=== PATIENT | female | born 1995 | race Caucasian/White ===

== ENCOUNTER 2016-08-03 19:42 | Emergency (ER) | payer OTHER ==
[~2016-08-03] VITALS: Ht 157.5 cm; Wt 105.5 kg
[2016-08-03 19:46] VITALS: TEMP 98.1
[2016-08-03] MEDS ORDERED: NORCO 325 MG-51 TAB PO (20:47)
[2016-08-03 21:15] VITALS: BP 150/107; PULSE 85
== END 2016-08-03 21:18 | disposition home or self-care (01) ==
LOC: COL.ER 19:42
DX: T22.211A Burn of second degree of right forearm, initial encounter (principal); T22.231A Burn of second degree of right upper arm, initial encounter; T31.0 Burns involving less than 10% of body surface; X10.2XXA Contact with fats and cooking oils, initial encounter; Y93.G3 Activity, cooking and baking; Y92.511 Restaurant or cafe as the place of occurrence of the external cause; Z23 Encounter for immunization

== ENCOUNTER 2018-06-22 00:11 | Emergency (ER) | payer SELFPAY ==
[~2018-06-22] VITALS: Ht 157.5 cm; Wt 113.6 kg
[~2018-06-22 00:11] MED LIST: NORCO 325 MG-51 TAB PO
[2018-06-22 00:12] VITALS: TEMP 98.5
[2018-06-22 01:31] LABS: BASO % 0.6 % (0.0-2.0); EOS # 0.1 (0.0-0.7); EOS % 1.9 % (0-4.0); GRAN # 3.8 (1.4-6.5); GRAN % 59.8 % (42.2-75.2); HEMATOCRIT 39.1 % (37.0-47.0); HEMOGLOBIN 12.6 g/dl (12.5-16.0); LYMPH # 1.9 (1.2-3.4); LYMPH % 29.3 % (20.0-51.0); MEAN CELL VOLUME 84 fl (80.0-100.0); MEAN CORPUSCULAR HEMOGLOBIN 27 pg (27.0-31.0); MEAN CORPUSCULAR HGB CONC 32 g/dl (33.0-37.0); MEAN PLATELET VOLUME 10.1 fl (7.4-10.4); MONO # 0.5 (0.1-0.6); MONO % 7.8 % (1.7-9.3); PLATELET COUNT 325 K/mm3 (130-400); RED BLOOD COUNT 4.68 M/mm3 (4.10-5.30); REDCELL DISTRIBUTION WIDTH-CV 13.2 % (11.5-14.5)
[2018-06-22 01:38] LABS: ALBUMIN 4.5 gm/dL (3.5-5.0); BILIRUBIN,TOTAL 0.5 mg/dL (0.0-1.0); CALCIUM 8.9 mg/dL (8.4-10.2); CREATININE, serum 0.63 mg/dL (0.52-1.25); POTASSIUM 3.5 mmol/L (3.4-5.0); TOTAL PROTEIN 8.3 gm/dL (6.4-8.2)
[2018-06-22 02:29] LABS: PH 7 (5-8); URINE APPEARANCE Cloudy; URINE BACTERIA None Seen /hpf; URINE BILIRUBIN Negative (NEGATIVE); URINE BLOOD 3+ (NEGATIVE); URINE CALCIUM OXALATE CRYSTAL Present /hpf; URINE COLOR Yellow; URINE GLUCOSE Negative (NEGATIVE); URINE KETONE Negative (NEGATIVE); URINE LEUKOCYTE ESTERASE Negative (NEGATIVE); URINE NITRATE Negative (NEGATIVE); URINE PROTEIN(semi-quant) 2+ (NEGATIVE); URINE RBC >50 /hpf; URINE WBC None Seen /hpf
[2018-06-22 02:36] LABS: COLLECTION METHOD CLEAN CATCH
[2018-06-22 03:00] VITALS: BP 137/95; PULSE 85
== END 2018-06-22 02:55 | disposition home or self-care (01) ==
LOC: COL.ER 00:11
PROVIDERS: Emergency Medicine
DX: R51 Headache (principal); I10 Essential (primary) hypertension; E66.9 Obesity, unspecified; Z68.42 Body mass index [BMI] 45.0-49.9, adult
CPT/HCPCS: J0780; J1200; J1885; J7030

== ENCOUNTER 2019-05-20 09:56 | Emergency (ER) | payer SELFPAY ==
[~2019-05-20] VITALS: Ht 157.5 cm; Wt 104.5 kg
[2019-05-20 10:04] VITALS: TEMP 98.2
[2019-05-20 12:04] LABS: BASO % 0.4 % (0.0-2.0); EOS # 0.2 (0.0-0.7); EOS % 2.4 % (0-4.0); GRAN # 4.4 (1.4-6.5); GRAN % 58.6 % (42.2-75.2); HEMATOCRIT 41.7 % (37.0-47.0); HEMOGLOBIN 13.1 g/dl (12.5-16.0); LYMPH # 2.4 (1.2-3.4); LYMPH % 32.5 % (20.0-51.0); MEAN CELL VOLUME 84 fl (80.0-100.0); MEAN CORPUSCULAR HEMOGLOBIN 27 pg (27.0-31.0); MEAN CORPUSCULAR HGB CONC 31 g/dl (33.0-37.0); MEAN PLATELET VOLUME 9.9 fl (7.4-10.4); MONO # 0.4 (0.1-0.6); MONO % 5.8 % (1.7-9.3); PLATELET COUNT 389 K/mm3 (130-400); RED BLOOD COUNT 4.94 M/mm3 (4.10-5.30); REDCELL DISTRIBUTION WIDTH-CV 13.1 % (11.5-14.5)
[2019-05-20] MEDS ORDERED: IBU800 M1 PO (13:09)
[2019-05-20 13:24] VITALS: BP 131/91; PULSE 73
[2019-05-20] MEDS ORDERED: ZITHROMAX 250M250 MG PO (15:29)
== END 2019-05-20 13:25 | disposition home or self-care (01) ==
LOC: COL.ER 09:56
PROVIDERS: Physician Assistant
DX: N92.0 Excessive and frequent menstruation with regular cycle (principal); G40.909 Epilepsy, unspecified, not intractable, without status epilepticus

== ENCOUNTER 2020-04-14 21:10 | Emergency (ER) | payer BC ==
[~2020-04-14] VITALS: Ht 157.5 cm; Wt 113.6 kg
[~2020-04-14 21:10] MED LIST changes: +IBU800 M1 PO; +ZITHROMAX 250M250 MG PO
[2020-04-14] MEDS ORDERED: ANTIVERT 25MG25 MG PO (21:59)
[2020-04-14] MEDS ORDERED: PRINIVIL40 MG PO (21:59)
[2020-04-14 22:35] VITALS: BP 147/81; PULSE 83; TEMP 98.3
== END 2020-04-14 22:40 | disposition home or self-care (01) ==
LOC: COL.ER 21:10
DX: H69.90 Unspecified Eustachian tube disorder, unspecified ear (principal); E66.01 Morbid (severe) obesity due to excess calories; Z20.828 Contact with and (suspected) exposure to other viral communicable diseases; Z68.42 Body mass index [BMI] 45.0-49.9, adult